=== PATIENT | male | born 1970 | race Caucasian/White ===

== ENCOUNTER 2019-11-12 00:11 | Outpatient (CLI) | payer OTHER, SELFPAY ==
[2019-11-12 17:26] LABS: SARS-CoV-2 RNA PCR Negative
== END 2019-11-12 00:12 | disposition home or self-care (01) ==
LOC: ANHCOVIDDT 00:11
PROVIDERS: PCP Internal Medicine; Visit Provider Internal Medicine Gastroenterology
DX: Z12.11 Encounter for screening for malignant neoplasm of colon (principal); Z11.59 Encounter for screening for other viral diseases
CPT/HCPCS: 87635; C9803; U0003

== ENCOUNTER 2019-11-15 00:32 | Day surgery (SDC) | payer OTHER, SELFPAY ==
[2019-11-04 13:04] VITALS: BMI 23.6
[2019-11-15 06:35] VITALS: BP 146/86; PULSE 95; RESP 16; TEMP 36.6; O2SAT 98
[2019-11-15] MEDS: LACTATED RINGERS 1,000 ML 150 ML IV CONT (06:41)
--- NOTE | 2019-11-15 07:05 | P.HP_ITS ---
History of Present Illness History of Present Illness Consent: Risks, benefits, and alternatives have been discussed and questions answered. Patient agrees to proceed with procedure. Chief complaint: Neoplasm Screening Narrative: Dimas Marrufo is a 49 year old W male Referred for his 1st screening colonoscopy. Patient is asymptomatic. there is no known family history of colon polyps or colon cancer. Patient is on Plavix secondary coronary stents placed in 2018. He did stop this 4 days ago. REPLACED BY [facility] Past Medical History Medical History (Updated 11/15/19 @ 07:09 by Amadou Azul MD) Dyslipidemia Hypertension Surgical History Surgical History (Updated 11/15/19 @ 07:08 by Amadou Azul MD) Status post coronary artery stent placement Meds Home Medications and Allergies Home Medications Medication Instructions Recorded Confirmed Type aspirin 81 mg PO DAILY 11/04/19 11/04/19 History carvedilol 3.125 mg PO BID 11/04/19 11/04/19 History clopidogrel 75 mg PO DAILY 11/04/19 11/15/19 History enalapril maleate 2.5 mg PO BID 11/04/19 11/04/19 History ergocalciferol (vitamin D2) 1,250 mcg PO WEEKLY 11/04/19 11/04/19 History folic acid 1 mg PO DAILY 11/04/19 11/04/19 History pravastatin 40 mg PO DAILY 11/04/19 11/04/19 History Allergies Allergy/AdvReac Type Severity Reaction Status Date / Time amoxicillin Allergy Swelling Verified 11/04/19 13:01 Vital Signs Vital Signs - 24 hr 11/15/19 06:35 Temperature 36.6 C Pulse Rate 95 Respiratory Rate 16 Blood Pressure 146/86 H Pulse Oximetry 98 Exam Const: Orientation/consciousness: patient oriented x3 Resp: Auscultation: clear to auscultation bilaterally Cardio: Rate: regular rate Rhythm: regular rhythm Heart sounds: no murmurs GI: GI Palp: Yes Soft to palpation, No Tenderness to palpation present (GI), Yes No hepatosplenomegaly present and No Palpable mass present Auscultation: normal bowel sounds Neuro: General: patient oriented x3 and no focal motor deficits Extrem: General: no pedal edema Assessment and Plan Additional Plan 1st screening colonoscopy in average risk patient
--- NOTE | 2019-11-15 07:13 | WPDANESEPPF ---
Anes - Initial Pre Proc Eval Procedure: Operation Date: 11/15/19 07:30 Proposed Procedures p Screening Colonoscopy - Amadou Azul MD Date/Time: 11/15/19 07:13 Surgeon: Amadou Azul MD Pre Op Diagnosis: Neoplasm Screening Patient Data Age: 49 Gender: M Height: 5 ft 10 in Weight: 76.3 kg Last Vital Signs Temp 97.8 F 11/15/19 06:35 Pulse 95 11/15/19 06:35 Resp 16 11/15/19 06:35 BP 146/86 H 11/15/19 06:35 Pulse Ox 98 11/15/19 06:35 Allergies Allergy/AdvReac Type Severity Reaction Status Date / Time amoxicillin Allergy Swelling Verified 11/04/19 13:01 Home Medications Medication Instructions Recorded Confirmed Type aspirin 81 mg PO DAILY 11/04/19 11/04/19 History carvedilol 3.125 mg PO BID 11/04/19 11/04/19 History clopidogrel 75 mg PO DAILY 11/04/19 11/15/19 History enalapril maleate 2.5 mg PO BID 11/04/19 11/04/19 History ergocalciferol (vitamin D2) 1,250 mcg PO WEEKLY 11/04/19 11/04/19 History folic acid 1 mg PO DAILY 11/04/19 11/04/19 History pravastatin 40 mg PO DAILY 11/04/19 11/04/19 History Patient hx anesthesia problems: none Family hx anesthesia problems: none PMFSH Past Medical History Medical History (Updated 11/15/19 @ 07:13 by Bucky Winchester MD) CAD (coronary artery disease) Dyslipidemia Hypertension Surgical History Surgical History (Updated 11/15/19 @ 07:13 by Bucky Winchester MD) Status post coronary artery stent placement Stented coronary artery Anes - Eval Final PreProcedure Day of Procedure 11/15/19 07:13 Patient weight: normal Heart: regular rate and rhythm Lungs: clear to auscultation Airway: Mallampati scale class II Last oral intake: >/= 8 hours ASA classification: III Emergent: no Anesthetic plan: proceed Anesthesia type and monitoring: general GIVS and standard monitoring Informed Consent: The patient's anesthetic plan and its attendant risks and benefits were discussed with the patient/family/POA. Questions were solicited and answers provided to the satisfaction of the patient/family/POA.
[2019-11-15] MEDS: SIMETHICONE ORAL SUSPENSION 20 MG/0.3 ML 30 ML BOTTLE 0.6 ML IRRIGATION (07:59)
[2019-11-15 08:01] VITALS: BP 83/50; PULSE 71; RESP 18; O2SAT 96
--- NOTE | 2019-11-15 08:01 | SUR.OPER ---
cecal polyp x2 only 1 retrieved
[2019-11-15 08:11] VITALS: BP 90/57; PULSE 70; RESP 18; O2SAT 97
[2019-11-15 08:21] VITALS: BP 131/77; PULSE 57; RESP 16; O2SAT 99
== END 2019-11-15 08:37 | disposition home or self-care (01) ==
PROVIDERS: PCP Internal Medicine; Visit Provider Internal Medicine Gastroenterology
PROC: 0DJD8ZZ Inspection of Lower Intestinal Tract, Via Natural or Artificial Opening Endoscopic (ICD-10-PCS; CPT 45378; principal; 2019-11-15 07:30)
DX: Z12.11 Encounter for screening for malignant neoplasm of colon (principal); D12.0 Benign neoplasm of cecum; K63.5 Polyp of colon; K64.1 Second degree hemorrhoids; I10 Essential (primary) hypertension; I25.10 Atherosclerotic heart disease of native coronary artery without angina pectoris; Z79.02 Long term (current) use of antithrombotics/antiplatelets; Z79.82 Long term (current) use of aspirin; Z95.5 Presence of coronary angioplasty implant and graft
CPT/HCPCS: 45385; 45381; 88305; J2001; J2704; J7120

== ENCOUNTER 2022-02-14 03:01 | Emergency (ER) | payer OTHER, SELFPAY ==
--- NOTE | ~2022-02-14 | XR_ITS ---
EXAMINATION: XR chest 2V DATE: 02/14/2022 04:03 INDICATION: Stroke. TECHNIQUE: Frontal and lateral views of the chest were obtained. COMPARISON: None. FINDINGS: The chest demonstrates clear lungs without pneumonia, pleural effusion, or pneumothorax. Th e heart size is normal. IMPRESSION: 1. No acute cardiopulmonary disease. Reviewed, dictated and finalized at location A.
--- NOTE | ~2022-02-14 | CT_ITS ---
EXAMINATION: CT brain wo con DATE: 02/14/2022 03:44 INDICATION: Right hand numbness and tingling. Wrist drop. TECHNIQUE: Computed tomography (CT) of the head was performed without intravenous contrast. The mA wa s adjusted according to patient size. Iterative reconstruction technique was employed. The dose-lengt h product was 681.00 mGy-cm. COMPARISON: None FINDINGS: There is a 6 mm hyperdense mass in the anterior third ventricle, consistent with a colloid cyst. There is no acute ischemic infarct or intracranial hemorrhage. The ventricles are normal in siz e. There is mild mucosal thickening in the paranasal sinuses. 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 The mastoid air cells are normal. The orbits are normal. IMPRESSION: 1. 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 No hydrocephalus. Reviewed, dictated and finalized at location A.
--- NOTE | 2022-02-14 03:12 | ECG_ITS ---
Measurements Intervals [place] Rate: 75 P: 62 NM: 132 QRS: 63 QRSD: 106 T: 64 QT: 407 QTc: 455 Interpretive Statements SINUS RHYTHM LEFT VENTRICULAR HYPERTROPHY MINIMAL Q WAVES- INF/LAT LEADS BASELINE ARTIFACT- I, II, AVR, AVL, AVF, V3 BORDERLINE ECG NO PREVIOUS ECG AVAILABLE FOR COMPARISON Electronically Signed On 02-15-2022 9:18:03 CDT by Darrian Bowling D.O.
[2022-02-14 03:16] VITALS: BP 158/92; PULSE 68; RESP 14; O2SAT 98
[2022-02-14 03:20] VITALS: TEMP 36.7
[2022-02-14 03:29] LABS: Basophils Absolute Auto 0.1 K/mm3 (0.0-0.1); Basophils Percent Auto 0.9 % (0.2-1.2); Eosinophils Absolute Auto 0.2 K/mm3 (0-0.3); Eosinophils Percent Auto 2.6 % (0-4.4); Immature Granulocyte Absolute 0.02 K/mm3 (0.00-0.031); Immature Granulocyte Percent A 0.3 % (0-0.5); Lymphocytes Absolute Auto 2.63 K/mm3 (0.9-3.2); Lymphocytes Percent Auto 40.5 % (18.3-44.2); Mean Corpuscular HGB Conc 34.1 g/dl (32-36); Mean Corpuscular Hemoglobin 33.7 pg (26-34); Mean Corpuscular Volume 98.8 fl (80-100); Mean Platelet Volume 9.2 fl (7.4-10.4); Monocytes Absolute Auto 0.6 K/mm3 (0.1-0.6); Monocytes Percent Auto 9.2 % (2.6-8.5); Neutrophils Percent Auto 46.5 % (45.5-73.1); Platelet Count Result 238 k/mm3 (150-375); Red Blood Count 4.15 M/mm3 (4.6-6.20); Red Cell Distribution Width 14.3 % (11.5-14.5); White Blood Count 6.5 K/mm3 (4.5-10.0)
[2022-02-14 03:30] VITALS: BP 122/76; PULSE 60; RESP 20; O2SAT 100
[2022-02-14 03:40] LABS: Alanine Aminotransferase 12 U/L (6-50); Albumin Level 4.2 g/dL (3.5-5.1); Alkaline Phosphatase 106 U/L (38-126); Anion Gap 3 mmol/L (8-16); Aspartate Amino Transferase 33 U/L (17-59); Bilirubin,Total 0.3 mg/dL (0.2-1.3); Blood Urea Nitrogen 6 mg/dL (9-20); Calcium 8.8 mg/dL (8.4-10.2); Carbon Dioxide 29 mmol/L (22-30); Chloride 100 mmol/L (98-107); Estimated CRCL calculation 139 ml/min; Estimated Glomerular Filt Rate > 60; Ethanol 229 mg/dL (<10); Glucose 100 mg/dL (65-110); Sodium 132 mmol/L (137-145)
[2022-02-14 03:42] LABS: INR 1.1; Prothrombin Time 14.1 Seconds (11.1-14.7)
[2022-02-14 03:51] LABS: Troponin I < 0.012 ng/mL (0.000-0.034)
[2022-02-14 04:18] VITALS: BP 114/62; PULSE 62; RESP 18; O2SAT 100
[2022-02-14 04:30] VITALS: BP 113/57; PULSE 52; RESP 18; O2SAT 100
[2022-02-14 05:00] VITALS: BP 99/60; PULSE 61; RESP 16; O2SAT 100
--- NOTE | 2022-02-14 05:28 | ED.UPPEXIN ---
HPI - Extremity Injury (Upper) General Chief Complaint: Extremity Injury, Upper Stated Complaint: woke up can't feel his hand Time Seen by Provider: 02/14/22 03:04 History of Present Illness HPI narrative: Patient is a 51-year-old male who presents ER with weakness and numbness to the right hand and wrist. Patient reports he was in his garage and fell asleep at 11 PM while watching TV. He woke up at 2 AM and was having difficulty using his right hand. He cannot extend at the wrist. He feels tingling in his hand. No other functional deficits to the extremity. He has no facial tingling or slurred speech. No lower extremity weakness. No history of CVA. He does have history of heart disease. He takes aspirin and Plavix. Patient did have some alcoholic beverages this evening. He is unsure how he is sleeping in his chair. He does not recall what position he woke up in. Related Data Home Medications Medication Instructions Recorded Confirmed aspirin 81 mg tablet,delayed 81 mg PO DAILY 11/04/19 11/04/19 release carvedilol 3.125 mg tablet 3.125 mg PO BID 11/04/19 11/04/19 clopidogrel 75 mg tablet 75 mg PO DAILY 11/04/19 11/15/19 enalapril maleate 2.5 mg tablet 2.5 mg PO BID 11/04/19 11/04/19 ergocalciferol (vitamin D2) 1,250 1,250 mcg PO WEEKLY 11/04/19 11/04/19 mcg (50,000 unit) capsule folic acid 1 mg tablet 1 mg PO DAILY 11/04/19 11/04/19 pravastatin 40 mg tablet 40 mg PO DAILY 11/04/19 11/04/19 Allergies Allergy/AdvReac Type Severity Reaction Status Date / Time amoxicillin Allergy Swelling Verified 02/14/22 03:20 Review of Systems Review of Systems: All systems reviewed & are unremarkable except as noted in HPI and below Constitutional: Constitutional: Denies chills and Denies fever(s) Cardiovascular: Cardiovascular: Denies chest pain, Denies rapid heart rate and Denies radiating jaw, neck or arm pain Respiratory: Respiratory: Denies cough and Denies dyspnea Musculoskeletal: Musculoskeletal: Denies arthralgias and Denies joint swelling Neurologic: Denies syncope, Denies headache(s), Reports focal weakness and Reports numbness PMFSH Past Medical History Medical History (Updated 02/14/22 @ 05:52 by Sb Hyde MD) CAD (coronary artery disease) Dyslipidemia Hypertension Surgical History Surgical History (Updated 11/15/19 @ 07:13 by Bucky Winchester MD) Status post coronary artery stent placement Stented coronary artery Social History Social History (Updated 02/14/22 @ 05:58 by Sb Hyde MD) Alcohol intake: current Exam Narrative: GENERAL: Well-appearing, well-nourished, and in no acute distress. HEAD: Normocephalic, atraumatic. EYES: PERRL and EOMI. Old contusion by the right eye. ENT: Mucous membranes moist. CHEST: Clear to auscultation. No respiratory distress. HEART: Regular rate and rhythm. Normal peripheral pulses. EXTREMITIES: Focused exam of the right upper extremity reveals weakness of the wrist using the extensors. Normal strength with wrist flexion. Normal addictions therapist strength. Normal range of motion at the shoulder and elbow. SKIN: Warm, dry, no rash. NEURO: Right-sided wrist drop. No upper extremity drift. No lower extremity drift. Cranial nerves II through XII intact. Sharp and soft touch intact throughout bilateral upper extremities. And oriented x3. PSYCH: Normal mood and affect. Course Course Emergency Course: Patient resting comfortably. Informed of results. Discussed diagnosis and treatment plan. Discussed case with Dr. Overton who will follow up patient in clinic. Patient splinted by substation technician. Vital Signs Vital signs: Vital Signs Pulse Rate 68 02/14/22 03:16 Respiratory Rate 14 02/14/22 03:16 Blood Pressure 158/92 H 02/14/22 03:16 Pulse Oximetry 98 02/14/22 03:16 Oxygen Delivery Room Air 02/14/22 03:16 Temperature 98.1 F 02/14/22 03:20 Pulse Rate 61 02/14/22 05:00 Respiratory Rate 16 02/14/22 05:00 Blood Pressure 99/
== END 2022-02-14 06:12 | disposition home or self-care (01) ==
PROVIDERS: Emergency Provider Emergency Medicine; PCP Internal Medicine
DX: G56.31 Lesion of radial nerve, right upper limb (principal); I25.10 Atherosclerotic heart disease of native coronary artery without angina pectoris; E78.5 Hyperlipidemia, unspecified; I10 Essential (primary) hypertension; Z95.5 Presence of coronary angioplasty implant and graft; Z79.82 Long term (current) use of aspirin; I51.7 Cardiomegaly; R94.31 Abnormal electrocardiogram [ECG] [EKG]; G93.0 Cerebral cysts
CPT/HCPCS: 36415; 70450; 71046; 80053; 80307; 84484; 85025; 85610; 85730; 93005; 99284; A4565

== ENCOUNTER 2022-04-01 14:00 | Outpatient (RCR) | payer OTHER, SELFPAY ==
--- NOTE | 2022-02-22 11:48 | OTOPEVAL1 ---
Evaluation Information Assessment Status Evaluation Diagnosis Radial nerve palsy Onset 02/14/2022 Subjective Information Patient reports decreased strength in wrist, difficulty typing at work due to pain in volar aspect of wrist, lifting items. Reported Pain Level Pain Score 0: Self Report Assessment OT Clinical Summary Dimas is a 51 year old male who presents to Outpatient Occupational Therapy with dominant R UE wrist drop and numbness to dorsal aspect of R digits 1-3 since 02/14/2022. Patient demonstrates weakness of wrist extensors, thumb abductor muscles, forearm supination indicating radial nerve palsy symptoms. Patient demonstrates decreased neurosurgical nurse strength, lateral pinch, and salcido pinch strength of R UE. Patient reports difficulty with typing tasks, lifting, using R UE for functional tasks due to discomfort of R UE wrist. Patient would benefit from skilled OT for splinting, education of positioning, HEP in order to improve radial nerve palsy symptoms and increase functional use of dominant R UE. Fabricated a wrist cock up splint for support R UE wrist and prevent wrist drop, patient demonstrated good understanding of wearing schedule, doffing/donning splint. Plan of Care Interventions Therapeutic Exercise,Neuro Re-education, Therapeutic Activities,Hot Pack/Cold Pack,Check Out for Orthotic/Pr OT Services Indicated Yes These treatments will address the objective and functional deficits as defined above. The patient will be advanced safely and appropriately in order for the patient to progress towards his/her prior level of function. Additional exercises will be introduced and as well as a comprehensive home exercise program upon discharge, if needed, ?to ensure carryover of functional gains achieved in the clinic. This treatment plan has been reviewed and agreement upon by the patient.
--- NOTE | 2022-04-01 14:19 | OTOPDC ---
Assessment and note entered by [facility] Evaluation Information Assessment Status Discharge Diagnosis Radial nerve palsy R UE Onset 02/14/2022 Subjective Information Patient reports R UE wrist and hand feel much stronger since beginning therapy is now able to complete gripping, grasping, typing tasks at work. Patient reports is no longer having any numbness or tingling in dorsal aspect of R UE digits 1-3. Reported Pain Level Pain Score 1: Self Report Assessment OT Clinical Summary Dimas Freire is a 51 year old male who presents to Outpatient Occupational Therapy with dominant R UE wrist drop and numbness to dorsal aspect of R digits 1-3 since 02/14/2022. Since beginning therapy on 02/22/2022, patient has participated in completing HEP with wrist ROM, nerve glides, in addition implementing nerve compression strategies including splinting, positioning. Patient reports no longer experiencing numbness/tingling on dorsal aspect of R UE digits 1-3 and wrist/hand feel stronger. 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 No skilled OT indicated at this time. Patient agreeable of plan to discharge today with goals met and patient independent with HEP materials. Plan of Care OT Services Indicated No
== END 2022-04-03 09:12 | disposition home or self-care (01) ==
LOC: ANHGOSHOT 14:00
PROVIDERS: PCP Internal Medicine; Visit Provider Nurse Practitioner
DX: G56.31 Lesion of radial nerve, right upper limb (principal)
CPT/HCPCS: 97110; 97165; 97763; L3905